=== PATIENT | male | born 1980 | race Two or more races ===

== ENCOUNTER 2022-07-02 16:00 | Emergency (ER) | payer OTHER ==
[~2022-07-02] VITALS: Ht 182.9 cm; Wt 111.6 kg
[2022-07-02 16:45] LABS: BASOPHILS % (AUTO) 0.2 % (0.0-2.0); EOSINOPHILS % (AUTO) 0.2 % (0.0-6.0); HEMATOCRIT 39 % (39-51); HEMOGLOBIN 12.4 g/dL (13.5-17.5); LYMPHOCYTES # (AUTO) 0.4 K/uL (0.8-4.8); LYMPHOCYTES % (AUTO) 3.2 % (20.0-44.0); MEAN CORPUSCULAR HGB CONC 32 g/dl (31.0-36.0); MEAN CORPUSCULAR VOLUME 64 fL (80-96); MONOCYTES # (AUTO) 0.4 K/uL (0.1-1.30); MONOCYTES % (AUTO) 3.2 % (2.0-12.0); NEUTROPHILS % (AUTO) 93.2 % (43.0-81.0); PLATELET COUNT (AUTO) 230 K/uL (150-450); RED BLOOD CELL COUNT(AUTO) 6.13 MIL/uL (4.5-6.0); WHITE BLOOD COUNT (AUTO) 12.9 K/uL (4.3-11.0)
[2022-07-02 17:00] LABS: CALCIUM, SERUM 8.9 mg/dL (8.5-10.1); CARBON DIOXIDE 25 mmol/L (21-32); CHLORIDE 99 mmol/L (98-107); CREATININE 0.9 mg/dL (0.6-1.3); GLUCOSE 100 mg/dL (74-106); POTASSIUM 3.8 mmol/L (3.5-5.1); SODIUM SERUM 135 mmol/L (136-145); UREA NITROGEN, BLOOD 15 mg/dL (7-18)
[2022-07-02] MEDS ORDERED: IV NS 0.9% 1,000 ML BAG IV ONE (18:30)
[2022-07-02] MEDS ORDERED: ONDANSETRON HCL/PF 4 MG/2 ML VIAL IVP ONE (18:30)
[2022-07-02] MEDS ORDERED: ONDANSETRON HCL/PF 4 MG/2 ML VIAL ONE (18:32)
[2022-07-02 19:57] LABS: BILIRUBIN,URINE SMALL (NEGATIVE); COLOR,URINE YELLOW (YELLOW); LEUKOCYTE ESTERASE ,URINE NEGATIVE (NEGATIVE); NITRITE, URINE NEGATIVE (NEGATIVE); PROTEIN,URINE TRACE mg/dl (NEGATIVE); UGLUCOSE NEGATIVE (NEGATIVE)
[2022-07-02 20:00] LABS: BACTERIA,URINE None seen /HPF (None Seen); MUCUS,URINE Moderate /LPF (None Seen); RBC,URINE 0-2 /HPF (0-2); SQUAMOUS EPITHELIAL CELL,UR 0-2 /HPF (None Seen); WBC,URINE 0-2 /HPF (0-3)
[2022-07-02] MEDS ORDERED: KETOROLAC TROMETHAMINE INJ 30 MG/ML VIAL IV ONE (20:00)
[2022-07-02] MEDS ORDERED: KETOROLAC TROMETHAMINE INJ 30 MG/ML VIAL ONE (20:01)
[2022-07-02 20:25] LABS: LYMPHOCYTES % (MANUAL) 6 % (16-48); MONOCYTES % (MANUAL) 4 % (0-11.0); NEUTROPHILS % (MANUAL) 90 (42-76)
[2022-07-02 21:19] VITALS: BP 122/74
== END 2022-07-02 21:20 | disposition home or self-care (01) ==
LOC: ER 16:10
DX: R07.9 Chest pain, unspecified (principal); D72.829 Elevated white blood cell count, unspecified; F17.210 Nicotine dependence, cigarettes, uncomplicated; Z20.822 Contact with and (suspected) exposure to COVID-19; E87.1 Hypo-osmolality and hyponatremia; D64.9 Anemia, unspecified; F32.A Depression, unspecified
CPT/HCPCS: 99285; 96374; 71045; 96361; 96375; 87426; 93005; 85025; 80048; 83690; 81001; 36415; 84484 ×2; 85007; J1885; J2405; J7030; C9803

== ENCOUNTER 2022-09-12 12:50 | Emergency (ER) | payer OTHER ==
[~2022-09-12] VITALS: Ht 182.9 cm; Wt 111.6 kg
[2022-09-12 13:08] VITALS: BP 132/68
[2022-09-12] MEDS ORDERED: IBUPROFEN 600 MG TABLET PO ONE (14:00)
[2022-09-12] MEDS ORDERED: IBUP-1955 PO (14:25)
[2022-09-12] MEDS ORDERED: PENI500T PO (14:25)
[2022-09-12] MEDS ORDERED: IBUPROFEN 600 MG TABLET ONE (14:35)
--- NOTE | 2022-09-12 15:16 | NUR ---
Patient discharged to home in stable condition. Written and verbal after care instructions given. Patient verbalizes understanding of instruction.
== END 2022-09-12 15:16 | disposition home or self-care (01) ==
LOC: ER 12:54
DX: J02.9 Acute pharyngitis, unspecified (principal); Z20.822 Contact with and (suspected) exposure to COVID-19; F17.200 Nicotine dependence, unspecified, uncomplicated
CPT/HCPCS: 99283; 87804; 87081; 87880; U0003; C9803; 86403-TC

== ENCOUNTER 2025-01-26 23:34 | Emergency (ER) | payer OTHER ==
[~2025-01-26] VITALS: Ht 180.3 cm; Wt 124.7 kg
[~2025-01-26 23:34] MED LIST: IBUP-1955 PO; PENI500T PO
[2025-01-27 00:14] VITALS: TEMP 98.2
[2025-01-27] MEDS ORDERED: ONDANSETRON HCL/PF 4 MG/2 ML VIAL ONE (00:28)
[2025-01-27] MEDS: IV NS 0.9% 1,000 ML BAG IV ONE (00:30)
[2025-01-27] MEDS: ONDANSETRON HCL/PF 4 MG/2 ML VIAL IVP ONE (00:31)
[2025-01-27] MEDS ORDERED: ONDA4TAB5 PO (01:13)
[2025-01-27] MEDS ORDERED: MAG HYDROX/AL HYDROX/SIMETH 30 ML UDC ONE (01:40)
[2025-01-27] MEDS ORDERED: IBUPROFEN 400 MG TABLET ONE (01:41)
[2025-01-27] MEDS: MAG HYDROX/AL HYDROX/SIMETH 30 ML UDC PO ONE (01:44)
[2025-01-27] MEDS: IBUPROFEN 400 MG TABLET PO ONE (01:44)
[2025-01-27 06:26] VITALS: BP 131/80; O2SAT 98
== END 2025-01-27 06:27 | disposition home or self-care (01) ==
LOC: ER 23:42
DX: F10.10 Alcohol abuse, uncomplicated (principal); F11.23 Opioid dependence with withdrawal; F17.200 Nicotine dependence, unspecified, uncomplicated; F32.A Depression, unspecified; Y90.9 Presence of alcohol in blood, level not specified
CPT/HCPCS: 99283; 96374; 96361; J2405; J7030